=== PATIENT | female | born 2005 | race Caucasian/White ===

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

== ENCOUNTER → 2024-07-28 | Outpatient (CLI) | payer OTHER ==
--- NOTE | 2024-07-28 14:47 | US ---
EXAMINATION TYPE: US thyroid st tissue head/neck DATE OF EXAM: 07/28/2024 COMPARISON: NONE CLINICAL INDICATION: Female, 18 years old with history of R229 LOCALIZED SWELLING,[place]; Left lat eral neck palpable x 6 months TECHNIQUE: Multiple grayscale and color Doppler ultrasound images of the left lateral neck soft tiss ues at region of palpable abnormality were obtained FINDINGS/IMPRESSION: Superficial hypoechoic lesion with posterior enhancement measuring 0.9 x 0.8 x 0.8 cm possibly repres enting a sebaceous cyst. No internal color flow. Tract to skin surface is not definitively visualized [facility] Carmela Castañeda, , 07/28/2024 2:45 PM
== END | disposition home or self-care (01) ==
LOC: RADUSWWP 14:17
PROVIDERS: ATTEND Pediatrics Adolescent Medicine
DX: R22.1 Localized swelling, mass and lump, neck (principal)
CPT/HCPCS: 76536